=== PATIENT | female | born 1990 | race Caucasian/White ===

== ENCOUNTER 2022-04-10 19:58 | Inpatient (IN) ==
[2022-04-10] MEDS ORDERED: OXYTOCIN 30 UNITS/500 ML BAG IV PRN (20:30)
[2022-04-10] MEDS ORDERED: LIDOCAINE 1% LOCAL 20 ML VIAL INFIL PRN (20:30)
--- NOTE | 2022-04-10 20:39 | History & Physical Report ---
Date of Service April 10, 2022 Assessment & Plan (1) Supervision of normal intrauterine in primigravida: Plan: Admit to L&D. EFM/toco. Labs. Desires epidural. History of Present Illness Chief Complaint: contractions Primary Care Provider: Elisabet Figueroa, 31yo @ 39 08/14, presented to L&D with contractions and vaginal bleeding. She has had contractions all day - was evaluated this morning at L&D and found to have a closed cervix. This evening, had bloody discharge with wiping. + movement. No leaking water. with Need for Rhogam d/t Rh neg mother *Rhogam given 01/28/22-[facility] CF -FOB negative Allergies Allergy/AdvReac Type Severity Reaction Status Date / Time Penicillins Allergy hives Verified 04/08/22 11:21 Home Medications Medication Instructions Recorded Confirmed Type prenat.vits,jono,qto-[id number]-iqwhn 1 tab PO DAILY 08/25/21 04/10/22 History docusate sodium 50 mg capsule 150 mg PO BID 03/14/22 04/10/22 History (Colace Clear) Patient History Medical History Chlamydia Miscarriage Surgical History (Updated 04/10/22 @ 07:10 by Libby Veronica RN) H/O wisdom tooth extraction S/P tonsillectomy Family History Father Diabetes Dyslipidemia Heart disease Hypertension Myocardial infarction Family/Other Cystic fibrosis first cousin Family/Other Down syndrome cousin's child Mother No problems noted. Grandmother (Maternal) Breast cancer Denies family history of Ovarian cancer Prostate cancer Colorectal cancer Social History (Updated 04/10/22 @ 07:13 by Libby Veronica RN) Smoking Status: Former smoker Tobacco Type: Cigarettes Age Started Using Tobacco: 15; packs per day: 0.5; Second Hand Exposure: No; Hx Alcohol Use: No Hx Substance Use: No Preferred Language: Khmer Communication Ability: Effective Visual Impairment: No Limitations Hearing Ability: Normal Retort Operator Required: No Beliefs That Will Affect Care: None marital status: Single marital status details: cameron Shell(27) [phone] Current Living Situation: Alone Current Living Situation Comment: 2 dogs current occupational status: employed current occupation: [employer] Feels Safe at Home: Yes Childhood Exposure to Second-Hand Smoke: Yes Diet Comment: Regular caffeine: Yes (1 cup of coffee/day ) during the past year weight has: increased > 10 lbs Dental Care, Regularly: No Physical Activity Frequency: 3-4 Times per Week Seatbelt Use: always Sunscreen Use: No Gender Identity: Female Assistive Devices: Glasses Review of Systems All systems reviewed & are unremarkable except as noted in HPI & below Physical Exam Physical Exam: FHT Cat 1 [place] Q 3-4 min SVE 3-4cm/90/-2, bulging membranes. +bloody show Constitutional: WD/WN, vitals as above Respiratory: normal respiratory effort, lungs clear to auscultation no respiratory distress Cardiovascular: Rate/Rhythm: regular rate and regular rhythm Gastrointestinal (Abdomen): Inspection/Auscultation: abdomen normal to inspection Percussion/Palpation: abdomen soft; abdomen nontender Gravid. No s/s chorio or abruption. Skin: no rashes, warm and dry Psychiatric: A+Ox3, euthymic affect Results & Data ([facility] [place]) Vital Signs (Past 12 Hours) Vital Signs Temp Pulse BP 04/10/22 20:08 36.6 C 64 130/74 Coding Level of Care Code None Diagnoses Supervision of normal intrauterine in primigravida Z34.00
[2022-04-10] MEDS: LACTATED RINGER'S 1,000 ML IV PRN ×2 (21:10→22:13)
[2022-04-10] MEDS ORDERED: ePHEDrine sulfate 50 MG/ML AMP ONE (21:13)
[2022-04-10] MEDS ORDERED: SODIUM CHLORIDE 0.9% INJ 10 ML VIAL ONE (21:13)
[2022-04-10] MEDS ORDERED: fentaNYL citrate 100 MCG/2 ML VIAL ONE (21:13)
[2022-04-10] MEDS ORDERED: BUPIVACAINE 0.25% 30 ML VIAL ONE (21:13)
[2022-04-10] MEDS ORDERED: fentaNYL 2MCG/ML ROPIVACAINE 1.25MG/ML 100 ML BAG EPI ONE (21:14)
[2022-04-10] MEDS ORDERED: LIDOCAINE 2%/EPINEPHRINE 1:200,000 20 ML SDV ONE (21:14)
--- NOTE | 2022-04-10 21:28 | Anesthesiology Consultation ---
Date of Service April 10, 2022 Assessment & Plan Chart Review Chart Review: Patient NOT seen in Pre Admission Testing and Acceptable Risk for Labor Epidural Consults Requested none ASA ASA2 Proposed Anesthesia Anesthesia Type: Labor Epidural and CSE Risk / Benefits Reviewed With: PT / POA / Parent / Guardian, Accepts Plan and Informed Consent Obtained History Height/Weight Height: 5 ft 4 in Weight: 89.811 kg Allergies Allergy/AdvReac Type Severity Reaction Status Date / Time Penicillins Allergy hives Verified 04/08/22 11:21 Medications Home Medications Medication Instructions Recorded Confirmed Last Taken prenat.vits,jono,bcd-tjzy-buduf 1 tab PO DAILY 08/25/21 04/10/22 04/10/22 docusate sodium 50 mg capsule 150 mg PO BID 03/14/22 04/10/22 04/10/22 (Colace Clear) Active Medications Generic Name Dose Route Start Last Admin Trade Name Freq PRN Reason Stop Dose Admin Lactated Ringer's 1,000 mls @ 125 mls/hr 04/10/22 20:30 04/10/22 21:10 Lr IV 04/12/22 20:29 999 mls/hr .Q8H PRN Administration L&D Protocol Protocol NPO Date Last Intake of Fluids: 04/10/22 Time Last Intake of Fluids: 21:00 Date Last Intake of Solids: 04/10/22 Time Last Intake of Solids: 17:30 Past Medical History Medical History Chlamydia Miscarriage Near syncope Exercise / Class Metabolic Activity II 4-5 Yardwork/Stairs/Walk up hill Past Family History Family History Father Diabetes Dyslipidemia Heart disease Hypertension Myocardial infarction Family/Other Cystic fibrosis first cousin Family/Other Down syndrome cousin's child Mother No problems noted. Grandmother (Maternal) Breast cancer Denies family history of Ovarian cancer Prostate cancer Colorectal cancer Past Surgical History Surgical History H/O wisdom tooth extraction S/P tonsillectomy Past Anesthesia History No Hx of Anesthesia Complications and No Family Hx of Anesthesia Complications History of PONV No Hx of PONV and No Hx of Motion Sickness Social History Smoking Status: Former smoker Hx Alcohol Use: No Hx Substance Use: No substance use type: does not use Review of Systems no chest pain or sob Physical Exam Vital Signs Last Vital Signs Temp 36.8 C 04/10/22 21:09 Pulse 55 L 04/10/22 21:21 Resp 18 04/10/22 21:09 BP 151/87 H 04/10/22 20:46 Pulse Ox 99 04/10/22 21:21 ENMT Mouth: no TMJ abnormality Thyromental Distance: > or= 3.5 Finger Breadths Mallampati Class: II Neck normal visual inspection Respiratory normal respiratory effort Auscultation: lungs clear to auscultation bilaterally Cardiovascular Rate/Rhythm: regular rate and regular rhythm Musculoskeletal Spine: normal cervical ROM Neurologic moves all extremities Psychiatric Orientation: alert and oriented x 3
[2022-04-10 21:36] LABS: Hematocrit (blood only) 34.7 % (34.1-44.9); Hemoglobin 11.8 g/dl (12.0-16.0); Mean Corpuscular Volume 91.1 fL (80.0-100.0); Mean Platelet Volume 13.2 fL (9.4-12.3); Platelet Count 163 K/uL (130-400); RDW Coefficient of Variation 13.7 % (11.5-14.5); RDW Standard Deviation 43.5 fL (36.4-46.3); Red Blood Count 3.81 M/uL (3.93-5.22); White Blood Count 14.21 K/ul (4.8-10.8)
[2022-04-10] MEDS ORDERED: NALOXONE HCL 0.4 MG/1 ML VIAL/CARP IV PRN (21:38)
[2022-04-10] MEDS ORDERED: NALBUPHINE HCL INJ 10 MG/ML AMP IV PRN (21:38)
[2022-04-10] MEDS ORDERED: ONDANSETRON INJ 2 MG/ML 2 ML VIAL IV PRN (21:38)
[2022-04-10] MEDS ORDERED: NALOXONE HCL 1 MG in SODIUM CHLORIDE 0.9% 1000ML 1,000 ML IV PRN (21:38)
[2022-04-10] MEDS ORDERED: diphenhydrAMINE 50 MG/ML VIAL IV PRN (21:38)
[2022-04-10] MEDS ORDERED: fentaNYL 2MCG/ML ROPIVACAINE 1.25MG/ML 100 ML BAG EPI PRN (21:38)
[2022-04-10] MEDS ORDERED: ePHEDrine sulfate 50 MG/ML AMP IV PRN (21:38)
[2022-04-11] MEDS ORDERED: OXYTOCIN 30 UNITS/500 ML BAG IV PRN ×2 (00:28→06:06)
--- NOTE | 2022-04-11 00:29 | Labor Progress Brief Note ---
Date of Service April 11, 2022 Subjective SROM for thin meconium. Comfortable with epidural. FHT Cat 1 [place] Q 5 min SVE 5/90/-1 Discussed augmentation with pitocin - she is agreeable. Assessment & Plan Admission and Anticipated Discharge Date Admission Date: April 10, 2022 Results & Data ([facility]) Vital Signs (Past 12 Hours) Vital Signs Temp Pulse Resp BP Pulse Ox 04/10/22 21:09 36.8 C 18 04/11/22 00:26 65 97 04/11/22 00:21 79 97 04/11/22 00:19 54 L 94 04/11/22 00:16 55 L 95 04/11/22 00:15 54 L 104/56 L 04/11/22 00:14 57 L 93 04/11/22 00:11 56 L 95 04/11/22 00:09 57 L 94 04/11/22 00:06 55 L 95 04/11/22 00:03 58 L 94 04/11/22 00:01 60 96 04/11/22 00:00 56 L 102/56 L 04/10/22 23:56 95 04/10/22 23:57 94 04/10/22 23:56 57 L 04/10/22 23:57 56 L 04/10/22 23:51 93 04/10/22 23:51 60 04/10/22 23:51 94 04/10/22 23:51 59 L 04/10/22 23:46 95 04/10/22 23:46 57 L 04/10/22 23:46 59 L 04/10/22 23:46 107/56 L 04/10/22 23:45 94 04/10/22 23:45 56 L 04/10/22 23:41 95 04/10/22 23:41 58 L 04/10/22 23:36 95 04/10/22 23:36 57 L 04/10/22 23:31 96 04/10/22 23:31 61 04/10/22 23:30 57 L 04/10/22 23:30 105/52 L 04/10/22 23:26 95 04/10/22 23:26 57 L 04/10/22 23:24 92 04/10/22 23:24 81 04/10/22 23:21 97 04/10/22 23:21 60 04/10/22 23:16 97 04/10/22 23:16 58 L 04/10/22 23:16 114/57 L 04/10/22 23:11 97 04/10/22 23:11 58 L 04/10/22 23:06 98 04/10/22 23:06 53 L 04/10/22 22:57 16 04/10/22 22:57 36.9 C 16 04/10/22 23:01 98 04/10/22 23:01 63 04/10/22 23:00 59 L 04/10/22 23:00 100/63 04/10/22 22:56 98 04/10/22 22:56 58 L 04/10/22 22:54 92 04/10/22 22:54 61 04/10/22 22:51 100 04/10/22 22:51 60 04/10/22 22:46 98 04/10/22 22:46 84 04/10/22 22:46 97/62 L 04/10/22 22:41 99 04/10/22 22:41 68 04/10/22 22:36 100 04/10/22 22:36 70 04/10/22 22:31 98 04/10/22 22:31 75 04/10/22 22:31 64 04/10/22 22:31 102/59 L 04/10/22 22:26 98 04/10/22 22:26 66 04/10/22 22:21 99 04/10/22 22:21 84 04/10/22 22:15 16 04/10/22 22:15 36.9 C 16 04/10/22 22:16 98 04/10/22 22:16 69 04/10/22 22:11 96 04/10/22 22:11 67 04/10/22 22:12 79 04/10/22 22:12 97/52 L 04/10/22 22:06 100 04/10/22 22:06 65 04/10/22 22:05 16 04/10/22 22:05 16 04/10/22 22:05 65 04/10/22 22:05 102/54 L 04/10/22 22:00 18 04/10/22 22:00 18 04/10/22 22:03 58 L 04/10/22 22:03 98/57 L 04/10/22 21:50 22 04/10/22 21:50 22 04/10/22 21:55 18 04/10/22 21:55 18 04/10/22 22:01 99 04/10/22 22:01 61 04/10/22 22:02 60 04/10/22 22:02 100/61 04/10/22 22:00 64 04/10/22 22:00 98/60 L 04/10/22 21:57 58 L 04/10/22 21:57 103/56 L 04/10/22 21:56 100 04/10/22 21:56 63 04/10/22 21:56 56 L 04/10/22 21:56 99/57 L 04/10/22 21:54 55 L 04/10/22 21:54 108/59 L 04/10/22 21:52 79 04/10/22 21:52 134/86 04/10/22 21:51 100 04/10/22 21:51 61 04/10/22 21:51 89 L 04/10/22 21:51 64 04/10/22 21:50 62 04/10/22 21:50 135/82 04/10/22 21:46 100 04/10/22 21:46 60 04/10/22 21:42 86 L 04/10/22 21:42 62 04/10/22 21:41 100 04/10/22 21:41 60 04/10/22 21:36 98 04/10/22 21:36 62 04/10/22 21:31 99 04/10/22 21:31 55 L 04/10/22 21:26 100 04/10/22 21:26 57 L 04/10/22 21:21 99 04/10/22 21:21 55 L 04/10/22 20:46 51 L 151/87 H 04/10/22 20:08 36.6 C 64 130/74 Coding Level of Care Code None
--- NOTE | 2022-04-11 05:55 | Delivery Summary ---
Vaginal Delivery Summary Date of Service April 11, 2022 Vaginal Delivery Summary and 2nd Degree LAC Vaginal Delivery Summary: Pre-delivery diagnoses: 31yo @ 39 6/7, spontaneous labor, Rh neg, CF carrier Post-delivery diagnoses: same Procedure: spontaneous vaginal delivery Surgeon: Mandie May DO Complications: none Findings: Viable male . Apgars: 5/9. Weight pending, please see nursery records. Estimated blood loss: 300ml Description of delivery: The patient progressed to complete with epidural anesthesia. She then began to push. She spontaneously vaginally delivered a viable from the cephalic presentation. The head delivered in LANETTE position. The anterior shoulder delivered, followed by the posterior shoulder, followed by the body. Body nuchal. The baby was placed on mother's abdomen and a spontaneous cry was heard. Delayed cord clamping was employed, and the cord was doubly clamped and cut. Cord blood was obtained. The placenta was delivered spontaneously intact with a 3-vessel cord. The uterus and vagina were swept of clots and debris. IV pitocin was given. The uterus became firm. The cervix, vagina, and perineum were inspected and a 2nd degree laceration was noted, repaired with 3-0 vicryl. There was a superficial, but bleeding, periclitoral laceration that was repaired with 3-0 vicryl. A rubalcava catheter was easily passed through urethra. Excellent hemostasis was observed. The mother and baby are recovering in stable and good condition in the room. Sponge, needle and instrument counts were correct x 2. Mandie May DO [facility] [place] Vaginal Delivery Charge Vaginal Delivery Codes: 30089 global code for the antepartum, delivery, and post- Delivery Type Details: and 2nd Degree LAC
[2022-04-11] MEDS ORDERED: DIPHTHERIA/TETANUS/PERTUSSIS 0.5 ML SYR/VIAL IM ONE (06:06)
[2022-04-11] MEDS ORDERED: BENZOCAINE 20% AER SPR 82.5 GM CAN EXT PRN (06:06)
[2022-04-11] MEDS ORDERED: ACETAMINOPHEN 325 MG TAB PO PRN (06:06)
[2022-04-11] MEDS ORDERED: HYDROCORTISONE ACETATE 25 MG SUPP PR PRN (06:06)
--- NOTE | 2022-04-11 07:41 | Anesthesia Procedure Note ---
Date of Service April 11, 2022 Anesthesia Post Epidural Note Vital Signs Vital Signs: Temp Pulse Resp BP Pulse Ox 36.9 C 82 16 139/86 97 04/11/22 06:43 04/11/22 07:28 04/11/22 06:43 04/11/22 07:28 04/11/22 05:46 Notes Mental Status: alert / awake / arousable and participated in evaluation Nausea / Vomiting: adequately controlled Pain: adequately controlled Airway Patency, RR, SpO2: stable & adequate BP & HR: stable & adequate Hydration State: stable & adequate Neuraxial Anesthesia: was administered and sensory block is resolving Anesthetic Complications: no major complications apparent Epidural: Removed without complications and With tip intact
[2022-04-11] MEDS: IBUPROFEN 600 MG TAB PO PRN ×2 (10:09→19:29)
[2022-04-11] MEDS: DOCUSATE SODIUM 100 MG CAP PO SCH ×2 (10:09→20:32)
[2022-04-11] MEDS: PRENATAL VITAMIN 1 TAB PO SCH (10:09)
[2022-04-12] MEDS: IBUPROFEN 600 MG TAB PO PRN ×5 (04:36→20:43)
--- NOTE | 2022-04-12 05:30 | Obstetrical Progress Note ---
Date of Service <Marylin Almaz Anderson DO - Last Filed: 04/12/22 06:28> April 12, 2022 Assessment & Plan <Marylin Anderson DO - Last Filed: 04/12/22 06:28> (1) care following vaginal delivery: Patient is PPD 1 s/p and doing well. - Eating well, ambulating well - Voiding w/ some issue, continue to monitor throughout today - Vitals reviewed and within normal limits - Pain well controlled with analgesics - OOB, ambulation, diet progression as tolerated - Blood type: O-, GBS neg, rubella immune - Plan to discharge tomorrow - After discharge, 6 week follow up with Dr. May (2) Need for rhogam due to Rh negative mother: <Elida Barlow MD - Last Filed: 04/12/22 06:54> (1) care following vaginal delivery: (2) Need for rhogam due to Rh negative mother: Subjective <Marylin Anderson DO - Last Filed: 04/12/22 06:28> Patient is a 31 yo female who is now PPD #1 following spontaneous vaginal delivery at 39+6 weeks. Reports feeling well this morning. She endorses abdominal cramping and 3/10 pain while resting and 7/10 with movement well managed on analgesics. Pt feels that she is unable to start a urine stream and that her urine is "dripping out." She is unsure if she feels that her bladder empties fully. Tolerating regular meals overnight and able to ambulate some. She has passed gas and no bowel movements. Persistent lochia with some improvement this morning. Currently breast feeding. Review of Systems Denies fever, chills, sweats. Denies SOB, difficulty breathing, chest pain, palpitations, and chest pressure. Denies breast pain. Denies dysuria. Denies headache or changes in vision. Physical Exam <Marylin Anderson DO - Last Filed: 04/12/22 06:28> General: Alert and oriented. No acute distress. CV: Regular rate and rhythm. No murmurs. Respiratory: CTA bilaterally. No rhonchi, wheezes, or crackles. No increased work of breathing. Abdomen: Positive bowel sounds. Soft, nontender, non distended. Uterus: Fundus firm and palpable 3 cm below the umbilicus. Lower extremities: No LE edema. No deep calf pain. Bernie's negative bilaterally. Results & Data ([facility]) <Marylin Anderson DO - Last Filed: 04/12/22 06:28> Vital Signs (Past 12 Hours) Vital Signs Temp Pulse Resp BP Pulse Ox O2 Del Method 04/12/22 04:31 36.8 C 88 18 111/71 97 Room Air 04/11/22 23:29 36.7 C 72 18 147/83 H 94 Room Air 04/11/22 20:18 36.9 C 96 H 18 97 Room Air <Elida Barlow MD - Last Filed: 04/12/22 06:54> Co-Signing Physician Notes Resident Physician Supervision Note: I interviewed and examined the patient. Discussed with Dr. Anderson and agree with findings and plan as documented in the note. Any exceptions or clarifications are listed here: [ ] Documented By: Elida Barlow MD, FACOG Resident Activity Tracking <Marylin Anderson DO - Last Filed: 04/12/22 06:28> Resident Involvement: Resident Care Provided Care Provided: OB Delivery
[2022-04-12 07:48] LABS: Hematocrit (blood only) 29.7 % (34.1-44.9); Hemoglobin 10.2 g/dl (12.0-16.0)
[2022-04-12] MEDS: PRENATAL VITAMIN 1 TAB PO SCH (08:10)
[2022-04-12] MEDS: DOCUSATE SODIUM 100 MG CAP PO SCH ×2 (08:10→20:42)
[2022-04-12] MEDS: oxyCODONE/ACETAMINOPHEN 5mg/325mg TAB PO PRN ×4 (08:12→20:43)
[2022-04-12] MEDS ORDERED: bisacodyL 5 MG TABEC PO SCH (20:00)
[2022-04-13] MEDS: oxyCODONE/ACETAMINOPHEN 5mg/325mg TAB PO PRN ×2 (01:57→07:56)
[2022-04-13] MEDS: IBUPROFEN 600 MG TAB PO PRN ×3 (01:58→14:33)
--- NOTE | 2022-04-13 05:34 | Obstetrical Progress Note ---
Date of Service <Marylin ShellDO mitchel - Last Filed: 04/13/22 06:13> April 13, 2022 Assessment & Plan <Marylin ShellDO mitchel - Last Filed: 04/13/22 06:13> (1) care following vaginal delivery: Patient is PPD 2 s/p and doing well. - Eating well, voiding improved, ambulating well - Vitals reviewed and within normal limits - Pain well controlled with escalated analgesics - OOB, ambulation, diet progression as tolerated - Blood type: O- (no need for rhogam as baby is neg), GBS neg, rubella immune - Plan to discharge today - After discharge, 6 week follow up with Dr. May <Soila Avendaño MD - Last Filed: 04/13/22 07:03> (1) care following vaginal delivery: Subjective <Marylin ShellDO mitchel - Last Filed: 04/13/22 06:13> Patient is a 31 yo female who is now PPD #2 following spontaneous vaginal delivery at 39+6 weeks. Reports feeling well this morning. She endorses abdominal cramping and 2-3/10 pain while resting, 6-7/10 pain while moving well managed on percocet. Voiding has improved since yesterday. Pt able to better feel the urge to urinate. Tolerating regular meals overnight and able to ambulate some. She has passed gas and no bowel movements. Persistent lochia with some improvement this morning. Currently breast feeding. Review of Systems Denies fever, chills, sweats. Denies SOB, difficulty breathing, chest pain, palpitations, and chest pressure. Denies breast pain. Denies dysuria. Denies headache or changes in vision. Physical Exam <Marylin ShellDO mitchel - Last Filed: 04/13/22 06:13> General: Alert and oriented. No acute distress. CV: Regular rate and rhythm. No murmurs. Respiratory: CTA bilaterally. No rhonchi, wheezes, or crackles. No increased work of breathing. Abdomen: Positive bowel sounds. Soft, nontender, non distended. Uterus: Fundus firm and palpable 3 cm below the umbilicus. Lower extremities: No LE edema. No deep calf pain. Bernie's negative bilaterally. Results & Data ([facility]) <Marylin Anderson DO - Last Filed: 04/13/22 06:13> Vital Signs (Past 12 Hours) Vital Signs Temp Pulse Resp BP Pulse Ox O2 Del Method 04/12/22 23:45 36.8 C 82 16 134/81 97 Room Air 04/12/22 20:17 36.7 C 81 16 101/66 96 Room Air <Soila Avendaño MD - Last Filed: 04/13/22 07:03> Co-Signing Physician Notes Resident Physician Supervision Note: I interviewed and examined the patient. Discussed with Dr. Anderson and agree with findings and plan as documented in the note. Any exceptions or clar ifications are listed here: PP2 s/p , doing well. VSS, exam benign and wnl. Stable for d/c home today Documented By: Soila Avendaño MD Resident Activity Tracking <Marylin Anderson DO - Last Filed: 04/13/22 06:13> Resident Involvement: Resident Care Provided Care Provided: OB Delivery
[2022-04-13] MEDS: PRENATAL VITAMIN 1 TAB PO SCH (07:56)
[2022-04-13] MEDS: DOCUSATE SODIUM 100 MG CAP PO SCH (07:56)
[2022-04-13] MEDS ORDERED: bisacodyL 10 MG SUPP PR PRN (11:40)
[2022-04-14] MEDS ORDERED: bisacodyL 10 MG SUPP PR PRN
== END 2022-04-13 15:40 | disposition home or self-care (01) | DRG 807 ==
LOC: OPB 19:58 → 4S1 19:59 → 4E2 04-11 08:30